=== PATIENT | female | born 1965 | race Caucasian/White ===

== ENCOUNTER → 2021-09-06 13:03 | Outpatient (BNVA) | payer OTHER, SELFPAY | PROVIDERS: Visit Provider Physician Assistant | DX: S40.012A Contusion of left shoulder, initial encounter (principal); S90.32XA Contusion of left foot, initial encounter; S70.02XA Contusion of left hip, initial encounter; S73.192A Other sprain of left hip, initial encounter; W18.31XA Fall on same level due to stepping on an object, initial encounter | CPT/HCPCS: 73502; 99204 ==

== ENCOUNTER → 2021-09-12 08:16 | Outpatient (BNVA) | payer OTHER, SELFPAY | PROVIDERS: Visit Provider Internal Medicine | DX: S70.02XD Contusion of left hip, subsequent encounter (principal); W19.XXXD Unspecified fall, subsequent encounter | CPT/HCPCS: 99213 ==

== ENCOUNTER → 2021-09-18 13:08 | Outpatient (BNVA) | payer OTHER, SELFPAY | PROVIDERS: Visit Provider Physician Assistant | DX: S70.02XD Contusion of left hip, subsequent encounter (principal); W19.XXXD Unspecified fall, subsequent encounter | CPT/HCPCS: 99213 ==

== ENCOUNTER → 2021-10-03 10:26 | Outpatient (BNVA) | payer OTHER, SELFPAY | PROVIDERS: Visit Provider Physician Assistant | DX: S70.02XD Contusion of left hip, subsequent encounter (principal); W18.30XD Fall on same level, unspecified, subsequent encounter | CPT/HCPCS: 99213 ==